=== PATIENT | female | born 1975 | race Hispanic/Latino ===

== ENCOUNTER 2020-09-15 05:16 | Emergency (ER) | payer BC ==
[2020-09-15] MEDS ORDERED: NA CHLORIDE 0.9% 1,000 ML ONE (06:21)
[2020-09-15 06:27] LABS: Urine Blood 3+ (Negative); Urine Glucose Negative (Negative); Urine Protein Negative (Negative); Urine Specific Gravity 1.025 (1.005-1.030); Urine pH 5.5 (5.0-7.0)
[2020-09-15 06:40] LABS: ALT/SGPT 57 U/L (12-78); AST/SGOT 31 U/L (15-37); Albumin 3.5 g/dL (3.4-5.0); Alkaline Phosphatase 104 U/L (45-117); BUN Blood Urea Nitrogen 14 mg/dL (7-18); Bicarbonate 27 mmol/L (21-32); Bilirubin Direct 0.1 mg/dL (0-0.2); Bilirubin Total 0.7 mg/dL (0.2-1.0); Glucose Level 98 mg/dL (74-106); Lipase 94 U/L (73-393); Potassium 4.6 mmol/L (3.5-5.1); Protein, Total 7.6 g/dL (6.4-8.2); Sodium Level 142 mmol/L (136-145)
[2020-09-15 06:50] LABS: Absolute Lymphocytes (CBC) 2.8 K/uL (0.7-4.9); Basophils % 0.8 % (0-1.3); Hematocrit 39.3 % (36.0-45.0); Lymphocytes % 31.4 % (15.3-44.8); MPV 8.3 fL (7.6-11.3); RBC Red Blood Cell Count 4.39 M/uL (3.86-4.86)
--- NOTE | 2020-09-15 08:37 | RAD REPORT ---
EXAM DESCRIPTION: CTAbdomen Pelvis W Contrast - 09/15/2020 7:15 am CLINICAL HISTORY: Abdominal pain. ABD PAIN COMPARISON: No comparisons TECHNIQUE: Biphasic CT imaging of the abdomen and pelvis was performed with 100 ml non-ionic IV cont rast. All CT scans are performed using dose optimization technique as appropriate and may include automated exposure control or mA/KV adjustment according to patient size. FINDINGS: The lung bases are clear. The liver demonstrates diffuse fatty infiltration. The spleen, pancreas, adrenal glands and kidneys a re within normal limits. No bowel obstruction, free air, free fluid or abscess. Numerous diverticula are present involving the sigmoid colon. There is mild inflammation surrounding several diverticula in the left lower quadrant compatible with mild acute diverticulitis. The appendix is normal. No evidence of significant lymph adenopathy. No suspicious bony findings. IMPRESSION: Mild acute sigmoid diverticulitis is present without complication.
[2020-09-15 08:43] LABS: Platelet Estimate ADEQ; White Blood Cell Scan OK (OK)
[2020-09-15 08:48] LABS: Blood Morphology Comment NOT SEEN (NOT SEEN)
--- NOTE | 2020-09-15 09:07 | EDPHYS ---
Physician Documentation [facility] Name: Janny Wolf Age: 45 yrs Sex: Female : 1975 Arrival Date: 09/15/2020 Time: 05:20 Bed 6 Private MD: ED Physician Leoncio Graves HPI: 09/15 05:54 This 45 yrs old Female presents to ER via Ambulatory with complaints of pkl Abdominal Pain, Flank Pain. 05:54 The patient presents with abdominal pain in the lower abdomen, in the right upper pkl quadrant. Onset: The symptoms/episode began/occurred 4 day(s) ago. The symptoms radiate to right upper back. Associated signs and symptoms: none. The patient has not experienced similar symptoms in the past. Historical: - Allergies: 05:39 PENICILLINS; jb4 - Home Meds: 05:39 blood pressure medication [Active]; jb4 - PMHx: 05:39 Hypertension; jb4 - PSHx: 05:39 right knee; jb4 - Immunization history:: Adult Immunizations up to date. - Social history:: Smoking status: Patient denies any tobacco usage or history of. Patient/guardian denies using alcohol, street drugs. ROS: 05:54 Eyes: Negative for injury, pain, redness, and discharge, ENT: Negative for injury, pkl pain, and discharge, Neck: Negative for injury, pain, and swelling, Cardiovascular: Negative for chest pain, palpitations, and edema, Respiratory: Negative for shortness of breath, cough, wheezing, and pleuritic chest pain. 05:54 Abdomen/GI: Positive for abdominal pain, of the right upper quadrant, right lower quadrant and left lower quadrant. 05:54 Back: Positive for pain at rest, of the right upper back. 05:54 : Negative for urinary symptoms. 05:54 MS/extremity: Negative for acute changes. 05:54 Skin: Negative for rash. 05:54 Neuro: Negative for altered mental status. Exam: 05:54 Head/Face: Normocephalic, atraumatic. Eyes: Pupils equal round and reactive to light, pkl extra-ocular motions intact. Lids and lashes normal. Conjunctiva and sclera are non-icteric and not injected. Cornea within normal limits. Periorbital areas with no swelling, redness, or edema. ENT: Nares patent. No nasal discharge, no septal abnormalities noted. Tympanic membranes are normal and external auditory canals are clear. Oropharynx with no redness, swelling, or masses, exudates, or evidence of obstruction, uvula midline. Mucous membranes moist. Neck: Trachea midline, no thyromegaly or masses palpated, and no cervical lymphadenopathy. Supple, full range of motion without nuchal rigidity, or vertebral point tenderness. No Meningismus. Chest/axilla: Normal chest wall appearance and motion. Nontender with no deformity. No lesions are appreciated. Cardiovascular: Regular rate and rhythm with a normal S1 and S2. No gallops, murmurs, or rubs. Normal PMI, no JVD. No pulse deficits. Respiratory: Lungs have equal breath sounds bilaterally, clear to auscultation and percussion. No rales, rhonchi or wheezes noted. No increased work of breathing, no retractions or nasal flaring. 05:54 Abdomen/GI: Bowel sounds: normal, Palpation: soft, mild abdominal tenderness, in the right upper quadrant, right lower quadrant and left lower quadrant. 05:54 Back: pain, that is mild, of the right upper back. 05:54 : Exam negative for acute changes. 05:54 Musculoskeletal/extremity: Exam is negative for acute changes. 05:54 Skin: Exam negative for rash. 05:54 Neuro: Orientation: is normal, Mentation: is normal, Cranial nerves: grossly normal, Motor: Vital Signs: 05:36 BP 125 / 87; Pulse 70; Resp 16; Temp 98.0(O); Pulse Ox 98% on R/A; Weight 102.06 kg jb4 (R); Height 5 ft. 8 in. (172.72 cm); Pain 9/10; 06:00 BP 131 / 93; Pulse 66; Resp 18; Pulse Ox 98% on R/A; jb4 07:41 BP 125 / 97; Pulse 64; Resp 15; Pulse Ox 99% on R/A; hb 08:43 BP 139 / 89; Pulse 51; Resp 16; Pulse Ox 97% ; sv 05:36 Body Mass Index 34.21 (102.06 kg, 172.72 cm) jb4 MDM: 05:43 Patient medically screened. pkl 09:22 Data reviewed: vital signs, nurses notes, lab test result(s), radiologic studies. kdr Counseling: I had a detailed discussion with the patient and/or guardian regarding: the historical points, exam findings, and any diagnostic results supporting the discharge/admit diagnosis, lab results, radiology results, the need for outpatient follow up. Response to treatment: the patient's symptoms have markedly improved after treatment, patient is well hydrated. 09/15 05:51 Order name: Basic Metabolic Panel; Complete Time: 07:14 pkl 09/15 05:51 Order name: CBC with Diff; Complete Time: 08:56 pkl 09/15 05:51 Order name: Hepatic Function; Complete Time: 07:14 pkl 09/15 05:51 Order name: Lipase; Complete Time: 07:14 pkl 09/15 06:27 Order name: Urine Dipstick-Ancillary; Complete Time: 07:14 EDMS 09/15 06:28 Order name: Urine --Ancillary (enter results) mw2 09/15 05:51 Order name: IV Saline Lock; Complete Time: 06:01 pkl 09/15 05:51 Order name: Labs collected and sent; Complete Time: 06:03 pkl 09/15 06:14 Order name: CT Abd/Pelvis - IV Contrast Only; Complete Time: 08:56 pkl 09/15 06:17 Order name: Urine Dipstick-Ancillary (obtain specimen); Complete Time: 06:27 jb4 09/15 06:59 Order name: CBC Smear Scan; Complete Time: 08:56 EDMS 09/15 06:17 Order name: Urine Test (obtain specimen); Complete Time: 06:27 jb4 Administered Medications: 06:11 Drug: NS 0.9% 1000 ml Route: IV; Rate: 125 ml/hr; Site: left forearm; jb4 09:28 Follow up: Response: No adverse reaction; IV Status: Completed infusion; IV Intake: hb 300ml 09:20 Drug: Flagyl (metroNIDAZOLE) 500 mg Route: PO; hb 09:28 Follow up: Response: Medication administered at discharge. hb 09:20 Drug: Cipro (ciprofloxacin) 500 mg Route: PO; hb 09:28 Follow up: Response: Medication administered at discharge. hb Disposition: 09/15/20 09:06 Discharged to Home. Impression: Abdominal and pelvic pain, Sigmoid Diverticulitis. - Condition is Stable. - Discharge Instructions: Diverticulitis, [id number], Abdominal Pain, Adult, [id number]. - Prescriptions for Bentyl 20 mg Oral Tablet - take 1 tablet by ORAL route every 6 hours As needed; 20 tablet. Cipro 500 mg Oral Tablet - take 1 tablet by ORAL route every 12 hours for 10 days; 20 tablet. Flagyl 500 mg Oral Tablet - take 1 tablet by ORAL route every 6 hours for 10 days; 40 tablet. Zofran 4 mg Oral Tablet - take 1 tablet by ORAL route every 4-6 hours As needed; 12 tablet. Tramadol 50 mg Oral Tablet - take 1 tablet by ORAL route every 4-6 hours As needed as needed; 12 tablet. - Medication Reconciliation Form, Thank You Letter, Antibiotic Education, Prescription Opioid Use form. - Follow up: Private Physician; When: 2 - 3 days; Reason: If symptoms return, Further diagnostic work-up, Recheck today's complaints, Continuance of care, Re-evaluation by your physician. - Problem is new. - Symptoms have improved. Signatures: Dispatcher [employer] EDFL Suhail Alexander MD MD pkl Rittger, Kevin, MD MD kdr Baxter, Heather, RN RN hb Edis Lockwood RN RN jb4 Corrections: (The following items were deleted from the chart) 09:29 09:06 09/15/2020 09:06 Discharged to Home. Impression: Abdominal and pelvic pain; hb Sigmoid Diverticulitis. Condition is Stable. Forms are Medication Reconciliation Form, Thank You Letter, Antibiotic Education, Prescription Opioid Use. Follow up: Private Physician; When: 2 - 3 days; Reason: If symptoms return, Further diagnostic work-up, Recheck today's complaints, Continuance of care, Re-evaluation by your physician. Problem is new. Symptoms have improved. kdr
--- NOTE | 2020-09-15 09:07 | ER ---
Nurse's Notes [facility] Name: Janny Wolf Age: 45 yrs Sex: Female : 1975 Arrival Date: 09/15/2020 Time: 05:20 Bed 6 Private MD: Diagnosis: Abdominal and pelvic pain;Sigmoid Diverticulitis Presentation: 09/15 05:36 Chief complaint: Patient states: I have been having right upper abdominal pain. Last jb4 night It started radiating to my right lower back. Coronavirus screen: Client denies travel out of the [place] in the last 14 days. At this time, the client does not indicate any symptoms associated with coronavirus-19. Ebola Screen: No symptoms or risks identified at this time. Initial Sepsis Screen: Does the patient meet any 2 criteria? No. Patient's initial sepsis screen is negative. Does the patient have a suspected source of infection? No. Patient's initial sepsis screen is negative. Risk Assessment: Do you want to hurt yourself or someone else? Patient reports no desire to harm self or others. Onset of symptoms was September 15, 2020. Transition of care: patient was not received from another setting of care. 05:36 Method Of Arrival: Ambulatory jb4 05:36 Acuity: LAZARUS 3 jb4 Historical: - Allergies: 05:39 PENICILLINS; jb4 - Home Meds: 05:39 blood pressure medication [Active]; jb4 - PMHx: 05:39 Hypertension; jb4 - PSHx: 05:39 right knee; jb4 - Immunization history:: Adult Immunizations up to date. - Social history:: Smoking status: Patient denies any tobacco usage or history of. Patient/guardian denies using alcohol, street drugs. Screenin:39 Abuse screen: Denies threats or abuse. Nutritional screening: No deficits noted. jb4 Tuberculosis screening: No symptoms or risk factors identified. Fall Risk None identified. Assessment: 05:43 General: Appears in no apparent distress. uncomfortable, Behavior is calm, cooperative, jb4 appropriate for age. Pain: Complains of pain in right upper quadrant Pain radiates to right low back Pain currently is 9 out of 10 on a pain scale. Quality of pain is described as burning. Neuro: Level of Consciousness is awake, alert, obeys commands, Oriented to person, place, time, situation. Cardiovascular: Patient's skin is warm and dry. Respiratory: Airway is patent Respiratory effort is even, unlabored, Respiratory pattern is regular, symmetrical. GI: Abdomen is non-distended, obese, Bowel sounds present X 4 quads. Abd is soft and non tender X 4 quads. : No signs and/or symptoms were reported regarding the genitourinary system. EENT: No signs and/or symptoms were reported regarding the EENT system. Derm: Skin is intact, Skin is pink, warm \T\ dry. Musculoskeletal: Circulation, motion, and sensation intact. Range of motion: intact in all extremities. 06:34 Reassessment: Patient appears in no apparent distress at this time. Patient and/or jb4 family updated on plan of care and expected duration. Pain level reassessed. Patient is alert, oriented x 3, equal unlabored respirations, skin warm/dry/pink. 07:24 Reassessment: Pt returned from CT. hb 07:41 Reassessment: Patient appears in no apparent distress at this time. Patient and/or hb family updated on plan of care and expected duration. Pain level reassessed. Patient is alert, oriented x 3, equal unlabored respirations, skin warm/dry/pink. 08:45 Reassessment: Patient appears in no apparent distress at this time. Patient and/or hb family updated on plan of care and expected duration. Pain level reassessed. Patient is alert, oriented x 3, equal unlabored respirations, skin warm/dry/pink. Vital Signs: 05:36 BP 125 / 87; Pulse 70; Resp 16; Temp 98.0(O); Pulse Ox 98% on R/A; Weight 102.06 kg jb4 (R); Height 5 ft. 8 in. (172.72 cm); Pain 9/10; 06:00 BP 131 / 93; Pulse 66; Resp 18; Pulse Ox 98% on R/A; jb4 07:41 BP 125 / 97; Pulse 64; Resp 15; Pulse Ox 99% on R/A; hb 08:43 BP 139 / 89; Pulse 51; Resp 16; Pulse Ox 97% ; sv 05:36 Body Mass Index 34.21 (102.06 kg, 172.72 cm) 4 ED Course: 05:20 Patient arrived in ED. es 05:38 Triage completed. jb4 05:39 Arm band placed on right wrist. jb4 05:39 Patient has correct armband on for positive identification. Bed in low position. Call jb4 light in reach. Side rails up X 1. Pulse ox on. NIBP on. 05:42 Suhail Alexander MD is Attending Physician. pkl 05:43 Edis Lockwood, RN is Primary Nurse. jb4 06:12 Inserted saline lock: 18 gauge in left forearm, using aseptic technique. jb4 07:15 CT Abd/Pelvis - IV Contrast Only In Process Unspecified. EDMS 07:22 Attending Physician role handed off by Suhail Alexander MD kdr 07:22 Leoncio Graves MD is Attending Physician. kdr 07:40 Primary Nurse role handed off by Edis Lockwood RN hb 07:40 Emily Zapata RN is Primary Nurse. hb 09:28 No provider procedures requiring assistance completed. IV discontinued, intact, hb bleeding controlled, No redness/swelling at site. Administered Medications: 06:11 Drug: NS 0.9% 1000 ml Route: IV; Rate: 125 ml/hr; Site: left forearm; jb4 09:28 Follow up: Response: No adverse reaction; IV Status: Completed infusion; IV Intake: hb 300ml 09:20 Drug: Flagyl (metroNIDAZOLE) 500 mg Route: PO; hb 09:28 Follow up: Response: Medication administered at discharge. hb 09:20 Drug: Cipro (ciprofloxacin) 500 mg Route: PO; hb 09:28 Follow up: Response: Medication administered at discharge. hb Intake: 09:28 IV: 300ml; Total: 300ml. hb Outcome: 09:06 Discharge ordered by . kdr 09:28 Discharged to home ambulatory. hb 09:28 Condition: stable 09:28 Discharge instructions given to patient, Instructed on discharge instructions, follow up and referral plans. medication usage, Demonstrated understanding of instructions, follow-up care, medications, Prescriptions given X 4. 09:29 Patient left the ED. hb Signatures: Dispatcher [employer] Estela Allen, RN COLLEEN Suhail Alexander MD MD pkl Rittger, Kevin, MD MD [facility] Amy, Joy Emily Zapata RN RN Edis Lockwood RN RN [facility]
[2020-09-15] MEDS ORDERED: metroNIDAZOLE 500 MG TABLET ONE (09:32)
[2020-09-15] MEDS ORDERED: CIPROFLOXACIN HCL 500 MG TAB ONE (09:32)
[2020-09-15 09:35] VITALS: TEMP 98
[2020-09-15 09:40] VITALS: BP 139/89; O2SAT 97
[2020-09-15 10:02] LABS: Urine Specific Gravity/Preg 1.025 (1.005-1.030)
== END 2020-09-15 09:29 | disposition home or self-care (01) ==
LOC: ER 05:16
DX: K57.32 Diverticulitis of large intestine without perforation or abscess without bleeding (principal); I10 Essential (primary) hypertension; Z88.0 Allergy status to penicillin
CPT/HCPCS: 96361; 85025; 80048; 36415; 81025; 80076; 81003; 83690; 74177; 96360; 99284; Q9967; J7030